=== PATIENT | male | born 1980 | race Hispanic/Latino ===

== ENCOUNTER 2018-12-25 16:57 | Emergency (ER) | payer SELFPAY ==
[2018-12-25] MEDS ORDERED: ASPIRIN (CHEWABLE) 81 MG TAB PO ONE (17:46)
--- NOTE | 2018-12-25 18:01 | RAD ---
EXAM DESCRIPTION: Chest,1 View CLINICAL HISTORY: 38 years Male, CHEST PAIN COMPARISON: None. TECHNIQUE: AP portable chest. FINDINGS/IMPRESSION: The lungs are hypoinflated causing mild vascular crowding. Streaky opacity within the left lower lung is favored to represent atelectasis. No focal consolidation, significant pneumothorax or pleural effusion seen. The heart is normal in size. No acute osseous abnormality. Electronically signed by: Kojo Mendoza DO 12/25/2018 6:00 PM CDT
--- NOTE | 2018-12-25 18:14 | ED.PDOC ---
History of Present Illness - General Chief Complaint: Cardiovascular Problem Stated Complaint: chest discomfort Time Seen by Provider: 12/25/18 17:45 Source: patient Exam Limitations: no limitations - History of Present Illness Initial Comments: Patient presents complaining of generalized feeling of not being well. He says that for about three days his whole body has been fatigue. He has had intermittent muscle cramps in his legs and hands. He also has had a sore throat and cough for two days. The cough is productive of green sputum. He has had clear nasal exudates and ear fullness. He says he has had chest discomfort since he walked into the [employer]. No cardiac history. No first degree relatives with cardiac histories. No history of DM/orthopnea/WILSON/hyperlipidemia/smoking. 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 No other complaints. Timing/Duration: other - 3 days Severity: mild Improving Factors: nothing Worsening Factors: nothing Associated Symptoms: other - as in HPI Allergies/Adverse Reactions: Allergies NO KNOWN ALLERGY Allergy (Verified 10/28/15 09:50) Home Medications: Ambulatory Orders Methylprednisolone [Medrol Dose Dank] 4 mg PO DAILY 6 Days #21 tab 11/12/18 Azithromycin 250 mg PO DAILY #4 tab 12/25/18 Review of Systems - Review of Systems Constitutional: States: weakness EENTM: States: see HPI Respiratory: States: see HPI Cardiology: States: see HPI Gastrointestinal/Abdominal: States: no symptoms reported Genitourinary: States: no symptoms reported Musculoskeletal: States: no symptoms reported Skin: States: no symptoms reported Neurological: States: no symptoms reported Endocrine: States: no symptoms reported Hematologic/Lymphatic: States: no symptoms reported Past Medical History (General) - Patient Medical History Hx Seizures: No Hx Stroke: No Hx Dementia: No Hx Asthma: No Hx of COPD: No Hx Cardiac Disorders: No Hx Congestive Heart Failure: No Hx Pacemaker: No Hx Hypertension: No Hx Thyroid Disease: No Hx Diabetes: No Hx Gastroesophageal Reflux: No Hx Renal Disease: No Hx Cancer: No Hx of HIV: No Hx Hepatitis C: No Hx MRSA: No Surgical History: other - Vaccination History Hx Tetanus, Diphtheria Vaccination: Yes Hx Influenza Vaccination: Yes Hx Pneumococcal Vaccination: No Immunizations Up to Date: Yes - Social History Hx Tobacco Use: No Hx Chewing Tobacco Use: No Hx Alcohol Use: No Hx Substance Use: No Hx Substance Use Treatment: No Hx Depression: No Feels Threatened In Home Enviroment: No Feels Threatened In a Relationship: No Hx Physical Abuse: No Hx Emotional Abuse: No Hx Suspected Abuse: No - Activities of Daily Living Hospice Agency (if applicable):: None - Female History Patient is a Female of Child Bearing Age (10 -59 yrs old): No Family Medical History - Family History Father Family History: No Known Living Status: Unknown Physical Exam - Physical Exam General Appearance: Alert Eye Exam: bilateral normal Ears, Nose, Throat: normal ENT inspection Neck: non-tender, full range of motion, supple Respiratory: lungs clear, normal breath sounds Cardiovascular/Chest: normal peripheral pulses, regular rate, rhythm Gastrointestinal/Abdominal: normal bowel sounds, non tender, soft Back Exam: normal inspection, no CVA tenderness Extremity: normal range of motion, non-tender, normal inspection Neurologic: no motor/sensory deficits, alert, normal mood/affect, oriented x 3 Skin Exam: normal color Lymphatic: no adenopathy Progress - Progress Progress: 12/25/18 20:14 Laboratory Tests 12/25/18 12/25/18 12/25/18 17:52 19:20 19:20 WBC 14.6 H RBC 4.56 L Hgb 13.9 L Hct 41.7 L MCV 91.5 MCH 30.5 MCHC 33.3 RDW 14.1 Plt Count 255 MPV 8.5 Absolute Neuts (auto) 11.40 H Absolute Lymphs (auto) 2.00 Absolute Monos (auto) 0.90 H Absolute Eos (auto) 0.30 Absolute Basos (auto) 0.10 Neutrophils % 78.3 H Lymphocytes % 13.5 L Monocytes % 6.0 Eosinophils % 1.8 Basophils % 0.4 PT 9.9 INR 0.99 PTT (SP) 25.7 Sodium 136 Potassium 3.5 L Chloride 99 L Carbon Dioxide 27 Anion Gap 13.5 BUN 9 Creatinine 0.93 BUN/Creatinine Ratio 9.7 L Random Glucose 95 Serum Osmolality 270.5 L Calcium 9.4 Magnesium 1.8 Creatine Kinase 174 CK-MB (CK-2) 1.0 CK-MB (CK-2) % Not Reportable Troponin I < 0.02 Urine Color Yellow Urine Appearance Clear Urine pH 7.0 Ur Specific [place] 1.025 Urine Protein Negative Urine Glucose (UA) Negative Urine Ketones Trace Urine Blood Negative Urine Nitrite Negative Urine Bilirubin Negative Urine Urobilinogen 0.2 Ur Leukocyte Esterase Negative Urine RBC 0-1 Urine WBC 0-1 Ur Epithelial Cells 0 Amorphous Sediment 1+ Urine Bacteria Rare Urine Mucus Small Group A Strep Rapid Negative wbc 14.6. Temp 100.3. Patient's symptoms are consistent with acute bronchitis and sinusitis as well as dehydration. He was given NS one liter IV bolus in the E.R. and azithromycin 500 mg po x one. RX for azithromycin 250 qd x 4 days given for sinusitis. Care instructions given. E.R. warnings given. Questions were elicited and answered. Patient voiced understanding and agreement with the plan. Departure - Departure Clinical Impression: Sinusitis, acute, Bronchitis, acute, Dehydration after exertion Disposition: Discharge to Home or Self Care Condition: Good Departure Forms: ED Discharge - Pt. Copy, Patient Portal Self Enrollment Instructions: Dehydration, Adult (DC), Sinusitis, Adult (DC), Acute Bronchitis, Adult (DC), Oral Rehydration Therapy, High Potassium Diet Diet: resume usual diet, other - increase oral fluids. Eat potassium rich foods such as bananas. Activity: increase activity as tolerated Prescriptions: Azithromycin 250 mg PO DAILY #4 tab Home Medications: Ambulatory Orders Methylprednisolone [Medrol Dose Dank] 4 mg PO DAILY 6 Days #21 tab 11/12/18 Azithromycin 250 mg PO DAILY #4 tab 12/25/18 Additional Instructions: Increase oral fluids. Take medications as prescribed. Eat potassium rich foods such as bananas. Return to the E.R. if your temperature is 100.4 or above after three more day, for shortness of breath, or worsening symptoms.
[2018-12-25] MEDS ORDERED: SODIUM CHLORIDE 0.9% 1000ML 1,000 ML IVS ONE (18:54)
[2018-12-25] MEDS ORDERED: AZITHROMYCIN 250 MG TAB PO ONE (20:02)
[2018-12-25 20:46] VITALS: BP 142/92; TEMP 98.1; O2SAT 99
== END 2018-12-25 20:44 | disposition home or self-care (01) ==
LOC: ER 16:57
DX: J01.90 Acute sinusitis, unspecified (principal); J20.9 Acute bronchitis, unspecified; E86.0 Dehydration
CPT/HCPCS: 36415; 71045; 80048; 81001; 82550; 82553; 84484; 85025; 85610; 85730; 87070; 87880; 93005; J7030; Q0144

== ENCOUNTER 2019-09-03 11:37 | Emergency (ER) | payer SELFPAY ==
--- NOTE | 2019-09-03 11:56 | RAD ---
EXAM DESCRIPTION: Chest,1 View CLINICAL HISTORY: 39 years Male, acute chest pain COMPARISON: Previous study August 29, 2019 TECHNIQUE: AP portable chest. FINDINGS: Heart size is normal with normal pulmonary vascularity. No consolidating infiltrate. No pulmonary mass or worrisome nodule. No pneumothorax or pleural effusion. Bones are unremarkable. IMPRESSION: No acute process is identified in the chest. Electronically signed by: He Singh MD 09/03/2019 11:54 AM CDT
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
[2019-09-03] MEDS ORDERED: HYDROcodone 7.5MG/APAP 325MG 1 EA TAB PO ONE (13:40)
[2019-09-03] MEDS ORDERED: KETOROLAC TROMETHAMINE INJ 30 MG/ML VIAL IM ONE (13:40)
[2019-09-03] MEDS ORDERED: MAGNESIUM HYDROXIDE 30 ML UD PO ONE (13:40)
[2019-09-03 15:30] VITALS: TEMP 98.5
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
[2019-09-03 18:30] VITALS: BP 156/85; O2SAT 94
== END 2019-09-03 17:00 | disposition home or self-care (01) ==
LOC: ER 11:37
DX: R09.1 Pleurisy (principal); R07.89 Other chest pain
CPT/HCPCS: 71045; 74177; 80053; 82550; 82553; 83735; 83880; 84484; 85025; 85379; 85610; 85730; 93005; J1885

== ENCOUNTER 2019-09-27 23:57 | Emergency (ER) | payer OTHER ==
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
[2019-09-28 01:01] VITALS: O2SAT 99
--- NOTE | 2019-09-28 04:42 | RAD ---
EXAM: X-ray foot three or more views CLINICAL DATA: 39-year-old male with right foot pain TECHNICAL DATA: Three x-ray views of the right foot were performed on 09/28/2019 at 1:04 AM. COMPARISONS: None FINDINGS: There is a comminuted mildly displaced intra-articular calcaneal fracture. No definite dislocation is identified. There is also a fracture through the base of the 5th metatarsal. A prominent os peroneum is also noted adjacent to the cuboid bone. Bone mineralization is normal. There are no lytic or sclerotic bone lesions. There is no evidence of arthritis or significant degenerative change. There is soft tissue swelling surrounding the right foot. IMPRESSION: 1. Comminuted displaced intra-articular fracture of the calcaneus with surrounding soft tissue swelling. 2. Displaced avulsion fracture of the base of the 5th metatarsal. 3. Prominent os peroneum (accessory ossicle). Electronically signed by: Ibeth Nuñez DO 09/28/2019 1:18 AM CDT
[2019-09-28 05:16] VITALS: BP 176/98; TEMP 98.7
== END 2019-09-28 02:17 | disposition home or self-care (01) ==
LOC: ER 23:57
DX: R23.8 Other skin changes (principal); M79.671 Pain in right foot

== ENCOUNTER 2019-11-09 23:30 | Emergency (ER) | payer OTHER ==
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
--- NOTE | 2019-11-10 00:01 | RAD ---
EXAM DESCRIPTION: Ankle,Right 3 Views CLINICAL HISTORY: 39 years Male fall COMPARISON: Images of the right foot dated September 28, 2019 TECHNIQUE: Three images of the right ankle were obtained. FINDINGS: Comminuted impacted fractures involving the calcaneus again noted. Marked periarticular soft tissue swelling. No acute fractures distal tibia or fibula. Talar dome is intact. Bone fragment proximal fifth metatarsal again seen. Patchy demineralization visualized tarsal bones likely related to disuse atrophy. IMPRESSION: Comminuted impacted fractures calcaneus as well as bone fragment proximal fifth metatarsal unchanged. No new fracture or dislocation involving the right ankle. Marked soft tissue swelling. Electronically signed by: Cathy Jaime MD 11/09/2019 11:59 PM CDT
[2019-11-10 01:13] VITALS: BP 155/87; TEMP 98; O2SAT 100
== END 2019-11-10 01:13 | disposition home or self-care (01) ==
LOC: ER 23:30
DX: S93.401A Sprain of unspecified ligament of right ankle, initial encounter (principal); W19.XXXA Unspecified fall, initial encounter; Y92.9 Unspecified place or not applicable

== ENCOUNTER 2020-07-26 23:44 | Emergency (ER) | payer SELFPAY ==
[2020-07-27 00:17] VITALS: O2SAT 98
[2020-07-27] MEDS: SODIUM CHLORIDE 0.9% 1000ML 1,000 ML IVS ONE (00:22)
--- NOTE | 2020-07-27 00:57 | ED.PDOC ---
History of Present Illness - General Chief Complaint: Lower Extremity Injury Stated Complaint: Swollen left foot Time Seen by Provider: 07/27/20 00:54 Source: patient, RN notes reviewed, Vital Signs reviewed Exam Limitations: no limitations - History of Present Illness Initial Comments: The patient is a 40 year old male who presents with LLE pain. States that he first noticed discomfort yesterday while wearing his work boots. He took them off this evening and noticed redness. No fever or drainage. No history of diabetes or immunocompromise. No other complaints at this time. Allergies/Adverse Reactions: Allergies NO KNOWN ALLERGY Allergy (Verified 11/09/19 23:55) Home Medications: Ambulatory Orders Methylprednisolone [Medrol Dose Dank] 4 mg PO DAILY 6 Days #21 tab 11/12/18 Azithromycin 250 mg PO DAILY #4 tab 12/25/18 Sucralfate Tab [Carafate Tab] 1 gm PO QID #120 tab 09/03/19 Cephalexin Monohydrate [Keflex] 500 mg PO Q6HRS #28 cap 07/27/20 Review of Systems - Review of Systems Constitutional: Denies: chills, fever EENTM: States: no symptoms reported Respiratory: States: no symptoms reported Cardiology: States: no symptoms reported Gastrointestinal/Abdominal: States: no symptoms reported Genitourinary: States: no symptoms reported Musculoskeletal: States: joint swelling Skin: States: rash Neurological: States: no symptoms reported Endocrine: States: no symptoms reported Hematologic/Lymphatic: States: no symptoms reported All other Systems: Reviewed and Negative Past Medical History (General) - Patient Medical History Hx Seizures: No Hx Stroke: No Hx Dementia: No Hx Asthma: No Hx of COPD: No Hx Cardiac Disorders: No Hx Congestive Heart Failure: No Hx Pacemaker: No Hx Hypertension: No Hx Thyroid Disease: No Hx Diabetes: No Hx Gastroesophageal Reflux: No Hx Renal Disease: No Hx Cancer: No Hx of HIV: No Hx Hepatitis C: No Hx MRSA: No Surgical History: other - Vaccination History Hx Tetanus, Diphtheria Vaccination: No Hx Influenza Vaccination: No Hx Pneumococcal Vaccination: No - Social History Hx Tobacco Use: No Hx Chewing Tobacco Use: No Hx Alcohol Use: No Hx Substance Use: No Hx Substance Use Treatment: No Hx Depression: No Hx Physical Abuse: No Hx Emotional Abuse: No Hx Suspected Abuse: No Family Medical History - Family History Father Family History: No Known Living Status: Unknown Physical Exam - Physical Exam General Appearance: Comfortable, No apparent distress Cardiovascular/Respiratory: regular rate, rhythm Leg: normal inspection, non-tender, no evidence of injury, normal ROM Knee: normal inspection, non-tender, no evidence of injury, normal ROM Ankle: soft tissue tenderness, swelling, other - Moderate erythema over lateral malleolus, no induration or fluctuance Foot: normal inspection, non-tender, no evidence of injury, normal ROM Mental Status: alert, oriented x 3 Skin: rash Progress - Progress Progress: 07/27/20 01:49 The patient presents with left ankle tenderness and swelling with mild erythema over lateral malleolus. There is no induration or drainable fluid collection and he does not have diabetes or immunocompromise. Will continue outpatient management with oral keflex and he will follow up with his PCP. Home care instructions and return indications reviewed. - Results/Orders Results/Orders: 07/26/20 23:59 BLOOD CULTURE Stat Laboratory Results - last 24 hr 07/27/20 07/27/20 07/27/20 00:08 00:08 00:08 WBC 12.1 H RBC 4.49 L Hgb 13.2 L Hct 40.1 L MCV 89.4 MCH 29.3 MCHC 32.8 L RDW 13.8 Plt Count 322 MPV 8.2 Absolute Neuts (auto) 7.30 H Absolute Lymphs (auto) 3.30 Absolute Monos (auto) 1.20 H Absolute Eos (auto) 0.20 Absolute Basos (auto) 0.10 Neutrophils % 59.8 Lymphocytes % 27.5 Monocytes % 10.3 H Eosinophils % 1.7 Basophils % 0.7 PT 10.1 INR 1.02 PTT (SP) 27.6 Sodium 138 Potassium 3.2 L Chloride 100 L Carbon Dioxide 28 Anion Gap 13.2 BUN 12 Creatinine 1.04 BUN/Creatinine Ratio 11.5 Random Glucose 112 H Serum Osmolality 276.2 Lactic Acid Calcium 9.0 Total Bilirubin 0.7 AST 24 ALT 27 Alkaline Phosphatase 113 Serum Total Protein 7.5 Albumin 4.0 Globulin 3.5 Albumin/Globulin Ratio 1.1 07/27/20 00:08 WBC RBC Hgb Hct MCV MCH MCHC RDW Plt Count MPV Absolute Neuts (auto) Absolute Lymphs (auto) Absolute Monos (auto) Absolute Eos (auto) Absolute Basos (auto) Neutrophils % Lymphocytes % Monocytes % Eosinophils % Basophils % PT INR PTT (SP) Sodium Potassium Chloride Carbon Dioxide Anion Gap BUN Creatinine BUN/Creatinine Ratio Random Glucose Serum Osmolality Lactic Acid 1.1 Calcium Total Bilirubin AST ALT Alkaline Phosphatase Serum Total Protein Albumin Globulin Albumin/Globulin Ratio Departure - Departure Clinical Impression: Cellulitis Qualifiers: Site of cellulitis: extremity Site of cellulitis of extremity: lower extremity Laterality: left Qualified Code(s): L03.116 - Cellulitis of left lower limb Time of Disposition: 00:55 Disposition: Discharge to Home or Self Care Condition: Fair Departure Forms: ED Discharge - Pt. Copy, Patient Portal Self Enrollment Instructions: DI for Leg Pain, Cellulitis (Skin Infection), Adult (DC) Diet: resume usual diet Activity: increase activity as tolerated Prescriptions: Cephalexin Monohydrate [Keflex] 500 mg PO Q6HRS #28 cap Home Medications: Ambulatory Orders Methylprednisolone [Medrol Dose Dank] 4 mg PO DAILY 6 Days #21 tab 11/12/18 Azithromycin 250 mg PO DAILY #4 tab 12/25/18 Sucralfate Tab [Carafate Tab] 1 gm PO QID #120 tab 09/03/19 Cephalexin Monohydrate [Keflex] 500 mg PO Q6HRS #28 cap 07/27/20
[2020-07-27] MEDS: CEPHALEXIN MONOHYDRATE 250 MG CAP PO ONE (00:59)
[2020-07-27 01:07] VITALS: BP 150/98; TEMP 97.9
== END 2020-07-27 01:08 | disposition home or self-care (01) ==
LOC: ER 23:44
DX: L03.116 Cellulitis of left lower limb (principal)
CPT/HCPCS: 36415; 80053; 83605; 85025; 85610; 85730; 87040; J7030